=== PATIENT | male | born 1995 | race Asian ===

== ENCOUNTER 2016-06-19 12:24 | Emergency (ER) | payer OTHER ==
--- NOTE | ~2016-06-19 | ER ---
PATIENT'S NAME: SHELIA [facility] AGE: 20 Y [address] ROOM: [place] [address] LOCATION: [facility] ADMIT DATE: 06/19/2016 ER/Outpatient Report DISCHARGE DATE: 06/19/2016 FAMILY PHYSICIAN: PHYSICIAN, NO ATTENDING PHYSICIAN: Asif Rooney CHIEF COMPLAINT: Right hand injury. TIME OF THE PATIENT ARRIVAL: 1224 hours. TIME OF THE PATIENT EVALUATION: 1230 hours. HISTORY OF PRESENT ILLNESS: This is a 20-year-old [place] male presents to the ER with a right hand injury. He states approximately 15 minutes prior to arrival he was working on a vehicle when it fell off the tawanda and crushed his hand. He states that his friends had to tawanda the car back up for him to get his hand out from underneath of it. He states he injured his right 3rd, 4th, and 5th digits during this incident. He states he is up-to-date in his tetanus shot. He denies any other problems at this time. ALLERGIES: NO KNOWN ALLERGIES. MEDICATIONS: None. PAST MEDICAL HISTORY: Negative. PAST SURGERIES: None. SOCIAL HISTORY: He is a student at [employer]. Denies any drugs or alcohol use. REVIEW OF SYSTEMS: CONSTITUTIONAL: Denies any change in weight or fatigue. MUSCULOSKELETAL: Complaining of right hand pain. HEMATOLOGIC: No easy bruising or bleeding. SKIN: Has some cuts and lacerations to his right fingers. PATIENT'S NAME: RUPA [facility] AGE: 20 Y [address] ROOM: [place] [id number] LOCATION: [facility] ADMIT DATE: 06/19/2016 ER/Outpatient Report DISCHARGE DATE: 06/19/2016 FAMILY PHYSICIAN: PHYSICIAN, NO ATTENDING PHYSICIAN: Asif Rooney PHYSICAL EXAMINATION: VITAL SIGNS: Weight 53 kg taken, blood pressure is 130/70, pulse 91, respirations 20, temperature 97.8 degrees tympanically, and saturations 95% on room air. Ono Coma Score is 15. GENERAL: An alert, slightly anxious appearing, 20-year-old, in mild-to- moderate distress. EXTREMITIES: No clubbing or cyanosis. He does have decreased range of motion of his right fingers, secondary to pain. He does not have any tenderness over any of his right metacarpals. He does have tenderness with palpation over his right middle finger, ring finger, and pinky finger with palpation over the entire aspect. SKIN: He has a laceration through the middle knuckle and then also has a small superficial cut to the volar side of his right middle finger that is not actively bleeding and then he also has abrasions noted to his right ring finger and then the other abrasions are to his right ring finger and right pinky finger that is were not actively bleeding at this time. LABORATORY DATA: Labs none were done. X-rays of the right hand show no obvious fracture. IMPRESSION: Crush injury to right hand with a laceration to his right ring finger measuring 1.5 cm and also has abrasions noted to his right middle finger and right pinky. ASSESSMENT AND PLAN: We did cleanse the laceration sites with normal saline. I did numb the ring finger laceration with 1% lidocaine. I cleansed with Betadine, flushed thoroughly with normal saline, and placed 3 sutures. The patient did tolerate this well. We did place the patient in a pre-made Colles' splint for his fingers to have support on. We did place antibiotic ointment to the wounds and we will dismiss him to home with a wound care handout. I am going to place him on Keflex 500 mg 1 p.o. t.i.d. x7 days. He may take Tylenol or ibuprofen as needed. I would like him to have his hand reevaluated tomorrow and otherwise he needs return here to the emergency room if he has significant amount of swelling into his fingers. The patient and the patient's friend understand and agrees with care. MIA SAUCEDA PA-C FOR MD ANITA WILHELM/ema PATIENT'S NAME: CURTIS GOODE [facility] AGE: 20 Y [address] ROOM: [place] [address] LOCATION: [facility] ADMIT DATE: 06/19/2016 ER/Outpatient Report DISCHARGE DATE: 06/19/2016 FAMILY PHYSICIAN: PHYSICIAN, NO ATTENDING PHYSICIAN: Asif Rooney /[id number] d: t: 06/22/16 1220, OUTPATIENT REPORT
== END 2016-06-19 14:10 | disposition disaster alternative care site (69) ==
LOC: GACC 12:24
PROC: 0HQFXZZ Repair Right Hand Skin, External Approach (ICD-10-PCS; principal; 2016-06-19)
DX: S67.194A Crushing injury of right ring finger, initial encounter (principal); S60.412A Abrasion of right middle finger, initial encounter; S60.416A Abrasion of right little finger, initial encounter; W31.89XA Contact with other specified machinery, initial encounter; Y93.89 Activity, other specified